=== PATIENT | female | born 1995 | race Caucasian/White ===

== ENCOUNTER 2025-07-25 23:07 | Emergency (ER) | payer SELFPAY ==
[2025-07-25 23:08] VITALS: BP 120/70
[2025-07-25 23:20] VITALS: BMI 19.8
--- NOTE | 2025-07-26 01:20 | ED.GENMED ---
History of Present Illness
General
Chief Complaint: Psychiatric Problem
Source: patient
Exam Limitations: none
Time Seen by Provider: 07/26/25 01:04
Nursing documentation reviewed up to this point in time: agreed with
History of Present Illness
History of Present Illness:
30-year-old transgender female presents to the ER today with concerns of increasingly frequent manic episodes as well as suicidal thoughts. She reports a history of mental health instability, noting that her symptoms have been worsening over the
past few months. She describes an episode where she decided to turn off her location services and notifications, then ran away to [place] to live on the streets, describing it as �a little vacation.� She recently returned and reports that the
episode was prompted by trauma from 'indirect things.'
The patient denies active suicidal ideation but admits experiencing such thoughts weeks ago, leading to erratic behavior. She recalls a mental health crisis five years ago where she required inpatient treatment, which she found beneficial at the
time. She reports that that time is similar to how she feels now. She has no active plans to hurt herself. No homicidal ideations. Although she sees a therapist, her sessions are infrequent due to her efforts to obtain insurance. She does not
currently have a diagnosis of bipolar disorder, though a past evaluation suggested a high score for it. She does not take any psychiatric medications. The patient has no auditory or visual hallucinations but mentions intermittent ringing in her
ears. She experiences chest tightness at times, particularly associated with her anxiety but has not had any of these symptoms recently. She denies any recent head or neck injuries and reports no use of illicit drugs.
Panic attacks occur frequently upon waking, often triggered by nightmares about a recent personal relationship. During these episodes, she swallowed objects inadvertently, leading to vomiting, which last occurred a week ago. She described these as
coping mechanisms during panic attacks. The patient reports transient nausea without vomiting today and denies any recent trauma or danger associated with her living situation, though she indicates interpersonal stress and a lack of family support.
Patient feels that she would not be able to keep herself safe if she is discharged and is seaking inpatient psychiatric treatment.
Review of Systems
Review of Systems
All Other Systems: ROS reviewed and negative except as documented in HPI and ROS
Phy Exam
Physical Exam
Physical Exam:
General: Alert, no acute distress.
Skin: Warm, dry.
Head: Normocephalic, atraumatic.
Neck: Supple, trachea midline.
Eye Ears, Nose, Mouth, and Throat: Oral mucosa moist.
Cardiovascular: Regular rate and rhythm, no murmurs. Normal peripheral perfusion, No edema.
Respiratory: Respirations are non-labored.
Gastrointestinal: Abdomen nondistended, no abdominal tenderness noted.
Back: Normal range of motion, Normal alignment.
Musculoskeletal: Normal ROM, normal strength.
Neurological: Alert and oriented to person, place, time, and situation, No focal neurological deficit observed.
Psychiatric: Good insight and judgement. Cooperative, appropriate mood & affect. No active HI/SI. No active tactile, auditory, or visual hallucinations.
Course
Orders/Labs/Results
Orders:
Orders
07/25/25 23:12
Crisis Consult Urgent
Reason for Consult: MANIC, SUICIDAL THOUGHTS
Comment: PT IS TRANSGENDER
07/26/25 01:34
ED Special Safety Observation ONCE
Observation level: One to Two
07/26/25 08:14
Urine Drug Abuse Screen Urgent
Date Specimen was Collected: 07/26/25
Time Specimen was Collected: 08:11
Vital Signs
Initial and Last Documented VS:
Initial Vital Signs
Temp Pulse Resp BP Pulse Ox
97.8 F 90 24 120/70 100
07/25/25 23:08 07/25/25 23:08 07/25/25 23:08 07/25/25 23:08 07/25/25 23:08
Last Documented Vital Signs
Temp Pulse Resp BP Pulse Ox
98.0 F 75 16 98/62 100
07/26/25 07:44 07/26/25 07:44 07/26/25 07:44 07/26/25 07:44 07/26/25 07:44
MDM/Problems Addressed
Differential Diagnosis Includes:
ddx include depression, panic attack, bipolar disorder, acute psychosis
MDM/Problems Addressed:
30-year-old transgender female presents to the ER today with concerns of increasingly frequent manic episodes as well as suicidal thoughts. She reports a history of mental health instability, noting that her symptoms have been worsening over the
past few months. She reports that she is unsafe living on her own, as she has had manic episodes that take her into [place] and put her in danger. She has also had passive suicidal thoughts. She was evaluated by crisis. She is voluntarily
seeking inpatient psychiatric treatment. She has no medical complaints at this time and has an unremarkable physical exam.
Case signed out to Timoteo Baker PA-C pending placement.
Chronic conditions affecting care:
transgender female
*Pulse Oximetry
SaO2: 100
Oxygen Mode of Delivery: Room air
Patient hypoxic: no
*Critical Care Note
Total Time (30-74mins, 75-104mins- exclusive of procedures): Not Applicable
Data Reviewed
Review of Other/Old Records Reveals: Records (no prior ER physician documentation to review, no discharge summaries for review )
Source: patient and records
Patient Management
Social determinants of health affecting care: Living situation and Poor social support
Update Note
Update Note:
Update, patient lacks insurance which complicates placement
Update, crisis team was able to secure government funding for placement
I was notified by crisis staff that they should here back about placement for patient around 8 am
ED Attending Note
-
Portions of this chart may have been created with voice recognition software.� Occasional wrong word or��sound alike� substitutions may have occurred due to the inherent limitations of voice recognition software.
Discharge Plan
Departure
Patient Disposition: [facility]
Discharge Problem:
Di
Prescriptions:
No Action
spironolactone 100 mg Tablet
100 mg PO BID
estradiol 2 mg Tablet
2 mg PO BID
progesterone micronized 100 mg Capsule
100 mg PO HS
Referrals:
NONE,* [Family Provider, Internal Medicine]
Interventions
Interventions:
*Risk Screen - Suicide Last Done: 07/25/25 23:08
*General Assessment Last Done: 07/25/25 23:20
*Neglect/Abuse Screening Last Done: 07/25/25 23:08
*ED- Fall Risk Assessment Last Done: 07/25/25 23:20
*ED COVID-19 Vaccine History Last Done: 07/25/25 23:20
*Nursing Disposition Last Done: 07/26/25 12:00
ED-Psychological Assessment Last Done: 07/26/25 07:46
Discharge Date and Time
Discharge Date/Time: 07/26/25 12:01
Print Language: TAMAZIGHT
[2025-07-26 06:15] VITALS: BP 104/65
[2025-07-26 07:44] VITALS: BP 98/62
--- NOTE | 2025-07-26 07:48 | EDRN ---
Received patient in bed. Calm and cooperative. Denies thoughts of suicide. Stated 'I am mentally messed up.' Reinforced with patient that she needs to give an urine sample. Verbalized understanding. Patient given water to drink.
--- NOTE | 2025-07-26 08:45 | EDRN ---
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
--- NOTE | 2025-07-26 09:08 | EDRN ---
Assumed care of pt at 8:45.
--- NOTE | 2025-07-26 09:22 | EDRN ---
Pt eating breakfast at this time. Pt asked about the LGBTQ placement at this time. This RN informed her that it is most likely for freedom in discussions on what she has and is going through w/ people like her.
== END 2025-07-26 12:01 ==
LOC: EMR 23:07
PROVIDERS: Physician Assistant; EMERGENCY PHYSICIAN Emergency Medicine
DX: R45.851 Suicidal ideations (principal); F30.9 Manic episode, unspecified; H93.13 Tinnitus, bilateral; R07.89 Other chest pain; F64.0 Transsexualism; F41.0 Panic disorder [episodic paroxysmal anxiety]; F51.5 Nightmare disorder; Z73.3 Stress, not elsewhere classified; Z60.8 Other problems related to social environment; Z59.71 Insufficient health insurance coverage
CPT/HCPCS: 99285; 80306

== ENCOUNTER 2025-09-22 20:39 | Emergency (ER) | payer SELFPAY ==
[2025-09-22 20:41] VITALS: BP 104/71
[2025-09-22 22:23] VITALS: BP 99/86
[2025-09-22 23:00] VITALS: BP 104/71
--- NOTE | 2025-09-22 23:02 | ED.GENMED ---
History of Present Illness
General
Chief Complaint: Chest Pain
Source: patient
Exam Limitations: none
Time Seen by Provider: 09/22/25 23:02
History of Present Illness
History of Present Illness:
30yo transgender female on hormone replacement presenting for evaluation of chest pain. Symptoms initially began a few months ago after a traumatic event. She had a psychiatric hospitalization and was started on Seroquel. Her chest pain
completely resolved while she was taking Seroquel. She decided to stop this 2 days ago and her chest pain recurred. She reports a dull pain in the center of her chest that has been constant. She is also having some shortness of breath. No
nausea, vomiting, heartburn, fever, cough, abdominal pain, syncope, calf pain, leg swelling.
Phy Exam
General Physical Exam
General Presentation: well appearing and no apparent distress
General Skin: warm and dry
General Habitus: normal
General Mental: alert
ENT Exam
ENT Exam: normocephalic
Cardiovascular Exam
Cardiovascular Exam: regular rate/rhythm, no edema, no murmur and normal peripheral pulses (2+ radial and DP pulses bilaterally)
Pulmonary Exam
Pulmonary Exam: lungs clear, no respiratory distress, no rales, no crackles, no rhonchi, no wheezing and other (+Reproducible sternal chest discomfort)
Neurological Exam
Neurological Exam: alert
[place] Coma Scale
Eye Opening: Spontaneous
Verbal Response: Oriented
Motor Response: Obeys Commands
GCS Total Score: 15
Skin Exam
Skin Exam: normal color and warm/dry
Psychiatric Exam
Psychiatric Exam: normal mood/affect
Scores
Heart Score for Chest Pain Patients
STEMI patient?: No
History: Slightly or Non-Suspicious
ECG: Normal
Age: </= 45 years
Risk Factors: No Risk Factors
Troponin: </= Normal Limit
Heart Score for Chest Pain Patients: 0
Heart Score Risk: 2.5% MACE over next 6 weeks
Course
Orders/Labs/Results
Orders:
Orders
09/22/25 20:46
Electrocardiogram (*1) Urgent
Reason for Study: Chest Pain
EKG- Treatment ONCE
09/22/25 23:10
Complete Blood Count/With Diff Urgent
Comprehensive Metabolic Panel Urgent
Troponin I Urgent
09/22/25 23:19
Cardiac Monitoring- Treatment ONCE
09/22/25 23:38
D-Dimer Urgent
09/23/25 00:42
CR Chest - 2 Views Urgent
Comment:
Reason For Exam: CP
09/23/25 01:25
Ketorolac [Toradol] 15 mg IV NOW STA
Abnormal Lab Results
09/22/25
23:10
MCV 79.8 L fL
(81.0-99.0)
Sodium 132 L mmol/L
(135-145)
09/22/25 23:10
09/22/25 23:10
Vital Signs
Initial and Last Documented VS:
Initial Vital Signs
Temp Pulse Resp BP Pulse Ox
98.6 F 99 18 104/71 97
09/22/25 20:41 09/22/25 20:41 09/22/25 20:41 09/22/25 20:41 09/22/25 20:41
Last Documented Vital Signs
Temp Pulse Resp BP Pulse Ox
98.6 F 75 16 114/69 100
09/22/25 20:41 09/23/25 01:42 09/23/25 01:42 09/23/25 01:42 09/23/25 01:42
MDM/Problems Addressed
Differential Diagnosis Includes:
30yoF here with chest pain. Started a few months ago, recurred 2 days ago after stopping Seroquel. On hormone therapy. There is reproducible tenderness on exam. VSS. Differential diagnosis includes but is not limited to: musculoskeletal, anxiety,
esophagitis, consider PE although less likely given normal vitals, doubt ACS
Initial ED plan: Triage EKG shows NSR without ischemic changes. Will check cardiac labs, D-dimer, and CXR vs. CT depending on D-dimer results.
*Pulse Oximetry
SaO2: 97
Oxygen Mode of Delivery: Room air
Patient hypoxic: no
*EKG
Interpreted by ED Provider?: Yes
EKG Intrepretation Date: 09/22/25
Heart Rate: 85
Rate: normal
Rhythm: sinus
[place]: normal axis
Interval: normal interval
QRS Pattern: normal QRS
Ischemia: no ischemia
*Critical Care Note
Total Time (30-74mins, 75-104mins- exclusive of procedures): Not Applicable
Update Note
Update Note:
Troponin undetectable. D-dimer normal making PE very unlikely. CXR obtained which appears normal per my interpretation. Patient believes her pain is related to stress/anxiety. She stopped Seroquel because it was too sedating and made her feel like a
'zombie.' No SI. Patient does not have insurance and crisis team asked to provide outpatient resources. She was also given contact information for the free clinic. Prescription given for hydroxyzine to trial for her anxiety. Patient discharged in
stable condition.
ED Attending Note
-
Portions of this chart may have been created with voice recognition software.� Occasional wrong word or��sound alike� substitutions may have occurred due to the inherent limitations of voice recognition software.
Discharge Plan
Departure
Patient Disposition: Home (Routine Discharge)
Date of Disposition: 09/23/25
Time of Disposition: 01:26
Patient with high blood pressure during this ER visit?: No
Discharge Problem:
Atypical chest pain
Instructions: Chest Pain PCP Follow Up
Prescriptions:
New
hydroxyzine HCl 25 mg tablet
25 mg PO BID PRN (Reason: anxiety) Qty: 20 0RF
No Action
spironolactone 100 mg Tablet
100 mg PO BID
estradiol 2 mg Tablet
2 mg PO BID
progesterone micronized 100 mg Capsule
100 mg PO HS
Referrals:
[facility] [Provider Group[facility]Outside[facility]
NONE,* [Family Provider, Internal Medicine]
Activity Restrictions/Additional Instructions:
Take hydroxyzine as needed for anxiety.
Please call tomorrow to schedule a follow-up appointment with a family doctor. Return to the ER with any new or worsening symptoms.
Interventions
Interventions:
*Risk Screen - Suicide Last Done: 09/22/25 20:44
*General Assessment Last Done: 09/23/25 00:49
*Neglect/Abuse Screening Last Done: 09/22/25 20:44
*ED- Fall Risk Assessment Last Done: 09/23/25 00:44
*ED COVID-19 Vaccine History Last Done: 09/23/25 00:49
*ED Influenza Vaccine History Last Done: 09/23/25 00:49
*Nursing Disposition Last Done: 09/23/25 01:50
ED- Cardiac Assessment Last Done: 09/22/25 23:15
Discharge Date and Time
Discharge Date/Time: 09/23/25 02:08
Print Language: ANDORRAN
[2025-09-22 23:21] LABS: Hematocrit 38.0 % (37.0-47.0); Hemoglobin 13.0 g/dL (12.0-16.0); Mean Corp Hgb Conc. 34.2 g/dL (33.0-37.0); Mean Corpuscular Volume 79.8 fL (81.0-99.0); Nucleated Red Blood Cells % 0 %; Platelet Count 189 10^3/uL (130-400); Red Cell Dist. Width 12.3 % (11.5-14.5)
[2025-09-22 23:41] LABS: ALT (SGPT) 13 U/L (0-35); AST (SGOT) 17 U/L (14-36); Albumin 4.5 g/dl (3.5-5.0); Alkaline Phosphatase 54 U/L (38-126); Blood Urea Nitrogen 14 mg/dl (7-17); Calcium 9.4 mg/dl (8.4-10.2); Carbon Dioxide 24 mmol/L (22-30); Chloride 103 mmol/L (98-107); Glucose 93 mg/dl (70-99); Potassium 4.4 mmol/L (3.5-5.1); Sodium 132 mmol/L (135-145); Total Protein 7.4 g/dl (6.3-8.2); eGFR > 60.00
[2025-09-22 23:53] LABS: Troponin I < 0.012 ng/ml
[2025-09-23] VITALS: BP 109/61
[2025-09-23 00:41] LABS: D-Dimer < 0.27 ug/mlFEU (0.00-0.50)
[2025-09-23 01:00] VITALS: BP 112/73
[2025-09-23] MEDS: TORADOL 15 MG IV (01:37)
[2025-09-23 01:42] VITALS: BP 114/69
== END 2025-09-23 02:08 | disposition home or self-care (01) ==
LOC: EMR 20:39
PROVIDERS: Emergency Medicine; Physician Assistant; EMERGENCY PHYSICIAN Emergency Medicine
DX: R07.89 Other chest pain (principal); T43.596A Underdosing of other antipsychotics and neuroleptics, initial encounter; Z91.128 Patient's intentional underdosing of medication regimen for other reason; Z79.890 Hormone replacement therapy
CPT/HCPCS: 99284; 96374; 71046; 80053; 84484; 85025; 85379; 93005

== ENCOUNTER 2025-10-09 23:51 | Emergency (ER) | payer SELFPAY ==
[2025-10-09 23:53] VITALS: BP 122/78
--- NOTE | 2025-10-10 00:24 | ED.GENMED ---
History of Present Illness
General
Chief Complaint: Suicidal Ideation
Source: patient
Exam Limitations: none
Time Seen by Provider: 10/10/25 00:20
Nursing documentation reviewed up to this point in time: agreed with
History of Present Illness
History of Present Illness:
Note:
CHIEF COMPLAINT(S)
Relationship problems and difficulty accessing mental health resources.
HISTORY OF PRESENT ILLNESS
The patient is a 30-year-old transgender female with pmh of PTSD, depression, SI presenting with concerns of suicidal ideations and difficulty accessing mental health resources. She reports feeling unsafe a few months ago but notes that her
situation has improved slightly since then. She describes her current living situation as being in a 'messy situation' involving a 'crazy ex-girlfriend,' which is negatively affecting both her and her partner. The patient expresses feelings of
regret and frustration, stating, 'part of me is just regretting coming here at all rather than just doing it.' She does have an active plan. She has never harmed herself, no recent self harm attempts. No suicidal ideations. She has been prescribed
hydroxyzine, but reports that it has not been effective in managing her symptoms.
The patient does not currently see a therapist due to barriers in accessing mental health resources, citing difficulties with Medicare and the lengthy process of obtaining needed care. She describes the process as 'super exhausting' and feels that
every effort to obtain help is met with additional requirements and delays.The patient expresses feelings of inadequacy and states, 'maybe I am not cut out to live.' Despite her struggles, she expresses a strong desire to receive therapy rather than
being prescribed stronger medications. She has no medical concerns at this time, no chest pain, shortness of breath, abdominal pain, upper respiratory symptoms, fevers or chills.
SOCIAL DETERMINANTS AFFECTING HEALTH
The patient reports significant stress from relationship issues and difficulty accessing necessary mental health resources. She describes ongoing frustration with Medicare, which presents barriers to obtaining therapy and other resources,
contributing to her current distress.
MEDICATIONS
The patient has been prescribed hydroxyzine, which has not been effective in relieving her symptoms.
REVIEW OF SYSTEMS
- Psychiatric: Reports of relationship problems, feelings of regret, and unsatisfactory response to hydroxyzine. Expresses frustration with barriers to accessing therapy.
PHYSICAL EXAM
General: Alert, no acute distress.
Skin: Warm, dry.
Head: Normocephalic, atraumatic.
Neck: Supple, trachea midline.
Eye, Ears, Nose, Mouth, and Throat: Oral mucosa moist.
Cardiovascular: Regular rate and rhythm, no murmurs. Normal peripheral perfusion, No edema.
Respiratory: Respirations are non-labored. No wheezes, rales, or rhonchi.
Gastrointestinal: Abdomen nondistended. No tenderness to palpation.
Back: Normal range of motion, Normal alignment.
Neurological: CN II-XII intact. Alert and oriented to person, place, time, and situation, No focal neurological deficit observed.
Psychiatric: Cooperative. Admits to feelings of hopelessness and suicidal ideations. No visual, auditory, or tactile hallucinations.
PLAN
1. Crisis consult
2. Provide resources and assistance to facilitate access to therapy and address barriers posed by Medicare.
3. Continue monitoring the patients psychiatric symptoms and adjust the treatment plan as needed.
DIFFERENTIAL DIAGNOSIS
The Differential Diagnosis includes, in no particular order and is not limited to:
1. Major Depressive Disorder
2. Generalized Anxiety Disorder
3. Adjustment Disorder with Depressed Mood
4. Post-Traumatic Stress Disorder
5. Bipolar Disorder
6. Borderline Personality Disorder
7. Substance-Induced Mood Disorder
8. Social Anxiety Disorder
9. Dysthymia
10. Panic Disorder
UPDATE
1:30 am--patient received funding to be transferred to [facility] in [place] or possibly [facility], facility requesting blood work, will add on
CBC and CMP unremarkable
Urine drug screen negative
5:00 am��patient has been accepted to [facility], transport will be arranged later this morning
CHART REVIEW
Reviewed ER physician documentation from 09/22/2025 patient seen for chest pain which started after a traumatic event
Reviewed crisis team report from 07/27/2025 patient was transferred to [place]
MDM/DISPOSITION
30-year-old transgender female with a past medical history of anxiety, depression, PTSD, presents to the ER today with concerns of suicidal ideation.
She is on hormone replacement therapy and spironolactone. She also was prescribed hydroxyzine previously which she feels has not helped. Currently on no psychiatric medications.
She has no medical complaints at this time. Her physical exam is unremarkable. Patient is medically clear.
She does have a active plan. She is not self-harm. Patient is voluntary for inpatient psychiatric treatment.
Case signed out to day team pending transport.
Phy Exam
Physical Exam
Physical Exam:
see hpi
Course
Orders/Labs/Results
Orders:
Orders
10/09/25 23:57
1:1 Observation - Suicide/ Violent Behavior As Directed
Crisis Consult Urgent
Reason for Consult: SUICIDAL IDEATIONS
10/10/25 02:10
Complete Blood Count/With Diff Urgent
Comprehensive Metabolic Panel Urgent
10/10/25 03:01
Urine Drug Abuse Screen Urgent
Date Specimen was Collected: 10/10/25
Time Specimen was Collected: 02:11
Abnormal Lab Results
10/10/25
02:10
WBC 4.7 L 10^3/uL
(4.8-10.8)
Glucose 114 H mg/dl
(70-99)
10/10/25 02:10
10/10/25 02:10
Vital Signs
Initial and Last Documented VS:
Initial Vital Signs
Temp Pulse Resp BP Pulse Ox
97.8 F 86 24 122/78 98
10/09/25 23:53 10/09/25 23:53 10/09/25 23:53 10/09/25 23:53 10/09/25 23:53
Last Documented Vital Signs
Temp Pulse Resp BP Pulse Ox
98.2 F 69 18 117/63 100
10/10/25 06:01 10/10/25 06:01 10/10/25 06:01 10/10/25 06:01 10/10/25 06:01
*Pulse Oximetry
SaO2: 98
Oxygen Mode of Delivery: Room air
Patient hypoxic: no
*Critical Care Note
Total Time (30-74mins, 75-104mins- exclusive of procedures): Not Applicable
ED Attending Note
-
Portions of this chart may have been created with voice recognition software.� Occasional wrong word or��sound alike� substitutions may have occurred due to the inherent limitations of voice recognition software.
Discharge Plan
Departure
Patient Disposition: Psych Facility
Date of Disposition: 10/10/25
Time of Disposition: 06:31
Condition: Fair
Discharge Problem:
Suicidal ideation
Prescriptions:
No Action
spironolactone 100 mg Tablet
100 mg PO BID
estradiol 2 mg Tablet
2 mg PO BID
progesterone micronized 100 mg Capsule
100 mg PO HS
hydroxyzine HCl 25 mg tablet
25 mg PO BID PRN (Reason: anxiety) Qty: 20 0RF
Referrals:
NONE,* [Family Provider, Internal Medicine]
Interventions
Interventions:
*Risk Screen - Suicide Last Done: 10/09/25 23:53
*General Assessment Last Done: 10/10/25 00:19
*Neglect/Abuse Screening Last Done: 10/09/25 23:53
*ED- Fall Risk Assessment Last Done: 10/10/25 00:20
*ED COVID-19 Vaccine History Last Done: 10/10/25 00:20
*ED Influenza Vaccine History Last Done: 10/10/25 00:20
ED-Psychological Assessment Last Done: 10/10/25 00:13
Discharge Date and Time
Print Language: ESTONIAN
[2025-10-10 02:23] LABS: Hematocrit 37.9 % (37.0-47.0); Hemoglobin 12.6 g/dL (12.0-16.0); Mean Corp Hgb Conc. 33.2 g/dL (33.0-37.0); Mean Corpuscular Volume 82.0 fL (81.0-99.0); Nucleated Red Blood Cells % 0 %; Platelet Count 195 10^3/uL (130-400); Red Cell Dist. Width 13.0 % (11.5-14.5)
[2025-10-10 02:54] LABS: ALT (SGPT) 19 U/L (0-35); AST (SGOT) 19 U/L (14-36); Albumin 4.4 g/dl (3.5-5.0); Alkaline Phosphatase 44 U/L (38-126); Blood Urea Nitrogen 15 mg/dl (7-17); Calcium 9.2 mg/dl (8.4-10.2); Carbon Dioxide 27 mmol/L (22-30); Chloride 105 mmol/L (98-107); Glucose 114 mg/dl (70-99); Potassium 4.5 mmol/L (3.5-5.1); Sodium 139 mmol/L (135-145); Total Protein 7.1 g/dl (6.3-8.2); eGFR > 60.00
[2025-10-10 06:01] VITALS: BP 117/63
[2025-10-10 07:36] VITALS: BP 106/69
[2025-10-10 11:27] VITALS: BP 119/65
== END 2025-10-10 12:13 ==
LOC: EMR 23:51
PROVIDERS: Physician Assistant; EMERGENCY PHYSICIAN Emergency Medicine
DX: R45.851 Suicidal ideations (principal); F32.A Depression, unspecified; F41.9 Anxiety disorder, unspecified; F43.10 Post-traumatic stress disorder, unspecified; Z59.71 Insufficient health insurance coverage; Z63.0 Problems in relationship with spouse or partner
CPT/HCPCS: 99285; 80053; 80306; 85025